=== PATIENT | female | born 1985 | race Caucasian/White ===

== ENCOUNTER 2020-09-26 08:05 | Inpatient (IN) | payer OTHER ==
[~2020-09-26] VITALS: Ht 157.4 cm; Wt 58.6 kg
[2020-09-26 08:10] VITALS: BP 152/91
[2020-09-26 08:31] LABS: BASO # 0.1 10*3/uL (0.0-0.1); BASO % 0.8 % (0.0-1.0); EOS # 0.1 10*3/uL (0.0-0.4); EOS % 1.8 % (1.0-4.0); HEMATOCRIT 35.6 % (37.0-47.0); LYMPH # 1.8 10*3/uL (1.3-4.4); LYMPH % 29.9 % (27.0-41.0); MEAN CELL VOLUME 101.1 fl (81.0-99.0); MEAN CORPUSCULAR HGB 33.2 pg (27.0-31.0); MEAN CORPUSCULAR HGB CONC 32.9 g/dl (33.0-37.0); MEAN PLATELET VOLUME 8.5 fl (9.6-12.3); MONO # 0.6 10*3/uL (0.1-1.0); MONO % 9.9 % (3.0-9.0); NEUT # 3.4 10*3/uL (2.3-7.9); NEUT % 57.1 % (47.0-73.0); PLATELET COUNT AUTOMATED 119 10*3/uL (130-400); RED BLOOD COUNT 3.52 10*6/uL (4.10-5.10); RED CELL DISTRI WIDTH 14.3 % (0-14.5)
[2020-09-26 08:51] LABS: ALBUMIN 3.7 gm/dl (3.1-4.5); ALKALINE PHOSPHATASE 54 U/L (45-117); BUN 12 mg/dl (7-24); CHLORIDE 104 mmol/L (98-107); CREATININE 0.55 mg/dL (0.55-1.02); LIPASE 202 U/L (73-393); POTASSIUM 3.7 mmol/L (3.5-5.1); SGOT/AST 34 IU/L (3-35); SGPT/ALT 36 U/L (12-78); SODIUM 138 mmol/L (136-145); TOTAL PROTEIN 6.9 gm/dL (6.4-8.2)
[2020-09-26 09:05] LABS: BETA-HCG, QUANT < 1.0 mIU/mL (1-3)
[2020-09-26] MEDS ORDERED: ARIPIPRAZOLE5 MG PO (10:58)
[2020-09-26] MEDS ORDERED: AMPHETAMINE/DEX30 MG PO (10:59)
[2020-09-26 11:03] VITALS: BP 148/84
[2020-09-26 11:22] VITALS: BP 150/88
[2020-09-26 11:30] LABS: BILIRUBIN Negative (Negative); BLOOD Negative (Negative); CLARITY Turbid (Clear); COLOR Yellow (Yellow); GLUCOSE Negative (Negative); KETONE Negative (Negative); LEUKO ESTERASE Negative (Negative); NITRITE Negative (Negative); PH 7.5 (4.5-8.0)
[2020-09-26 11:41] LABS: BACTERIA 1+; MUCOUS 2+; RBC 0-2 rbc/hpf (0-2); URINE AMPHETAMINES < 1000 (1000ng/ml); URINE BARBITURATES < 200 (200ng/ml); URINE BENZODIAZEPINES > 200 (200ng/ml); URINE CANNABINOIDS (THC) < 50 (50ng/ml); URINE COCAINE < 300 (300ng/ml); URINE METHADONE < 300 (300ng/ml); URINE OPIATES < 300 (300ng/ml); WBC 0-2 wbc/hpf (0-5)
[2020-09-26 11:42] LABS: URINE PHENCYCLIDINE < 25 (25ng/ml)
[2020-09-26 16:00] VITALS: BP 135/60
[2020-09-26 20:00] VITALS: BP 156/92
[2020-09-27] VITALS: BP 153/90
[2020-09-27 12:00] VITALS: BP 146/95
[2020-09-27 16:00] VITALS: BP 121/79; BP 146/95
[2020-09-27 20:00] VITALS: BP 145/97
[2020-09-28] VITALS: BP 146/94
[2020-09-28 08:00] VITALS: BP 133/84
[2020-09-28] MEDS ORDERED: CHLORZOXAZONE500 M2 PO (09:35)
[2020-09-28] MEDS ORDERED: MELOXICAM15 MG PO (09:36)
[2020-09-28] MEDS ORDERED: TIZANIDINE HCL4 MG PO (09:36)
[2020-09-28] MEDS ORDERED: VALACYCLOVIR500 M1 PO (09:37)
[2020-09-28] MEDS ORDERED: NEURONTIN800 MG PO (09:38)
[2020-09-28 12:00] VITALS: BP 143/85
[2020-09-28 16:00] VITALS: BP 136/88
[2020-09-28 20:00] VITALS: BP 135/87
[2020-09-29] VITALS: BP 142/80; BP 145/105
[2020-09-29 06:02] LABS: CREATININE 0.62 mg/dL (0.55-1.02)
[2020-09-29 06:32] LABS: BASO # 0.1 10*3/uL (0.0-0.1); EOS # 0.1 10*3/uL (0.0-0.4); EOS % 2.1 % (1.0-4.0); HEMATOCRIT 36.9 % (37.0-47.0); LYMPH # 1.7 10*3/uL (1.3-4.4); LYMPH % 28.9 % (27.0-41.0); MEAN CELL VOLUME 101.1 fl (81.0-99.0); MEAN CORPUSCULAR HGB 33.4 pg (27.0-31.0); MEAN CORPUSCULAR HGB CONC 33.1 g/dl (33.0-37.0); MEAN PLATELET VOLUME 9.4 fl (9.6-12.3); MONO # 0.7 10*3/uL (0.1-1.0); NEUT # 3.2 10*3/uL (2.3-7.9); PLATELET COUNT AUTOMATED 117 10*3/uL (130-400); RED BLOOD COUNT 3.65 10*6/uL (4.10-5.10); RED CELL DISTRI WIDTH 13.1 % (0-14.5); WHITE BLOOD COUNT 5.9 10*3/uL (4.8-10.8)
[2020-09-29 08:00] VITALS: BP 140/98
== END 2020-09-29 09:57 | disposition home or self-care (01) | DRG 775 ==
LOC: ED 08:05 → EDBD 08:08 → ED 08:08 → EDHOLD 09:13 → 4E 09:13 → EDHOLD 10:47 → 4E 10:57
PROVIDERS: Family Medicine; Registered Nurse; ADMIT Internal Medicine; ATTEND Internal Medicine
DX: F10.930 Alcohol use, unspecified with withdrawal, uncomplicated (principal); F90.9 Attention-deficit hyperactivity disorder, unspecified type; Y90.4 Blood alcohol level of 80-99 mg/100 ml; R03.0 Elevated blood-pressure reading, without diagnosis of hypertension; D53.9 Nutritional anemia, unspecified; Z98.891 History of uterine scar from previous surgery; Z80.9 Family history of malignant neoplasm, unspecified

== ENCOUNTER 2021-11-06 11:01 | Inpatient (IN) | payer OTHER ==
[~2021-11-06] VITALS: Ht 157.4 cm; Wt 61.5 kg
[~2021-11-06 11:01] MED LIST: AMPHETAMINE/DEX30 MG PO; ARIPIPRAZOLE5 MG PO; CHLORZOXAZONE500 M2 PO; MELOXICAM15 MG PO; NEURONTIN800 MG PO; TIZANIDINE HCL4 MG PO; VALACYCLOVIR500 M1 PO
[2021-11-06 11:21] VITALS: BP 127/88
[2021-11-06 11:39] LABS: BASO # 0.1 10*3/uL (0.0-0.1); BASO % 2.4 % (0.0-1.0); EOS # 0.1 10*3/uL (0.0-0.4); EOS % 1.7 % (1.0-4.0); LYMPH # 1.9 10*3/uL (1.3-4.4); LYMPH % 32.2 % (27.0-41.0); MEAN CELL VOLUME 104.4 fl (81.0-99.0); MEAN CORPUSCULAR HGB 34.6 pg (27.0-31.0); MEAN CORPUSCULAR HGB CONC 33.2 g/dl (33.0-37.0); MEAN PLATELET VOLUME 8.6 fl (9.6-12.3); MONO # 0.7 10*3/uL (0.1-1.0); MONO % 11.9 % (3.0-9.0); NEUT % 51.5 % (47.0-73.0); PLATELET COUNT AUTOMATED 358 10*3/uL (130-400); RED BLOOD COUNT 3.64 10*6/uL (4.10-5.10); RED CELL DISTRI WIDTH 12.4 % (0-14.5); WHITE BLOOD COUNT 5.8 10*3/uL (4.8-10.8)
[2021-11-06 11:51] LABS: ACT PARTIAL THROMBO TIME 26.9 SECONDS (20.0-32.1)
[2021-11-06 11:59] LABS: ALKALINE PHOSPHATASE 58 U/L (45-117); BUN 11 mg/dl (7-24); CHLORIDE 114 mmol/L (98-107); CREATININE 0.78 mg/dL (0.55-1.02); POTASSIUM 3.6 mmol/L (3.5-5.1); SGOT/AST 90 IU/L (3-35); SGPT/ALT 100 U/L (12-78); SODIUM 146 mmol/L (136-145); TOTAL PROTEIN 7.5 gm/dL (6.4-8.2)
[2021-11-06 12:01] LABS: B-hCG (QUALITATIVE) NEGATIVE (NEGATIVE)
[2021-11-06 13:00] LABS: BILIRUBIN Negative (Negative); BLOOD Negative (Negative); CLARITY Cloudy (Clear); COLOR Yellow (Yellow); GLUCOSE Negative (Negative); KETONE Negative (Negative); LEUKO ESTERASE Negative (Negative); NITRITE Positive (Negative); SPECIFIC GRAVITY <= 1.005 (1.001-1.030); UROBILINOGEN 0.2 E.U./dl (0.0-1.0)
[2021-11-06 13:11] LABS: URINE AMPHETAMINES > 1000 (1000ng/ml); URINE BARBITURATES < 200 (200ng/ml); URINE BENZODIAZEPINES < 200 (200ng/ml); URINE CANNABINOIDS (THC) < 50 (50ng/ml); URINE COCAINE < 300 (300ng/ml); URINE METHADONE < 300 (300ng/ml); URINE OPIATES < 300 (300ng/ml); URINE PHENCYCLIDINE < 25 (25ng/ml)
[2021-11-06 13:17] LABS: BACTERIA 4+; EPITHELIAL CELLS 41-50
[2021-11-06] MEDS ORDERED: ALPRAZOLAM2 MG PO (13:55)
[2021-11-06 15:04] VITALS: BP 131/78
[2021-11-06 16:15] VITALS: BP 128/80
[2021-11-06 17:06] VITALS: BP 130/90
[2021-11-06 20:00] VITALS: BP 117/82
[2021-11-07] VITALS: BP 135/91
[2021-11-07 08:00] VITALS: BP 133/84
[2021-11-07 12:00] VITALS: BP 133/91
[2021-11-07 16:00] VITALS: BP 142/89
[2021-11-07 20:00] VITALS: BP 129/78
[2021-11-08] VITALS: BP 126/76
[2021-11-08 04:00] VITALS: BP 121/70
[2021-11-08] MEDS ORDERED: DICYCLOMINE HYD20 MG PO (07:55)
[2021-11-08] MEDS ORDERED: METHOCARBAMOL750 M1 PO (07:55)
[2021-11-08] MEDS ORDERED: NATURE'S BLEND F1 MG PO (07:55)
[2021-11-08] MEDS ORDERED: VITAMIN B-1100 M1 PO (07:55)
[2021-11-08] MEDS ORDERED: ONDANSETRON HYDR4 M1 PO (07:55)
[2021-11-08] MEDS ORDERED: ATARAX,VISTARIL50 MG PO (07:55)
[2021-11-08] MEDS ORDERED: OMNICEF300 MG PO (07:57)
[2021-11-08 08:00] VITALS: BP 118/74
[2021-11-08 12:00] VITALS: BP 147/98
[2021-11-08 16:00] VITALS: BP 147/102
[2021-11-08 20:00] VITALS: BP 137/84
[2021-11-09] VITALS: BP 122/86
[2021-11-09 08:00] VITALS: BP 144/90
== END 2021-11-09 12:41 | disposition home or self-care (01) | DRG 775 ==
LOC: ED 11:01 → 4E 13:27 → EDHOLD 13:27 → 4E 15:57
PROVIDERS: Emergency Medicine; ADMIT Internal Medicine; ATTEND Internal Medicine
DX: F10.929 Alcohol use, unspecified with intoxication, unspecified (principal); N30.00 Acute cystitis without hematuria; E87.2 Acidosis; E87.0 Hyperosmolality and hypernatremia; F90.9 Attention-deficit hyperactivity disorder, unspecified type; F17.210 Nicotine dependence, cigarettes, uncomplicated; D53.9 Nutritional anemia, unspecified; R74.01 Elevation of levels of liver transaminase levels; E87.8 Other disorders of electrolyte and fluid balance, not elsewhere classified; B96.20 Unspecified Escherichia coli [E. coli] as the cause of diseases classified elsewhere; Z98.891 History of uterine scar from previous surgery